=== PATIENT | female | born 1965 | race Caucasian/White ===

== ENCOUNTER 2018-04-12 08:13 | Outpatient (CLI) | payer BC | END 2018-04-12 08:14 | disposition home or self-care (01) | LOC: BICMAMMO 08:13 | PROVIDERS: ATTEND Family Medicine | DX: Z12.31 Encounter for screening mammogram for malignant neoplasm of breast (principal) | CPT/HCPCS: 77063; 77067 ==

== ENCOUNTER 2018-04-21 19:30 | Outpatient (CLI) | payer BC | END 2018-04-21 19:31 | disposition home or self-care (01) | LOC: SLEEPLAB 19:30 | PROVIDERS: ATTEND Family Medicine | DX: G47.33 Obstructive sleep apnea (adult) (pediatric) (principal); R06.83 Snoring; R53.83 Other fatigue; I10 Essential (primary) hypertension; E11.9 Type 2 diabetes mellitus without complications; Z68.24 Body mass index [BMI] 24.0-24.9, adult | CPT/HCPCS: 95811 ==

== ENCOUNTER 2018-09-27 20:26 | Inpatient (IN) | payer BC ==
[2018-09-27] MEDS ORDERED: Acetaminophen 500 MG TAB ONE (21:16)
[2018-09-27] MEDS ORDERED: Ondansetron PF 4 MG/2 ML Vial ONE (21:16)
--- NOTE | 2018-09-27 21:37 | RAD ---
PORTABLE CHEST: HISTORY: Fever. FINDINGS: Heart size and mediastinum are within normal limits. Lungs are clear of infiltrates. No significant bony findings. IMPRESSION: No active intrathoracic disease. POS: [facility]
[2018-09-27 21:40] LABS: #Lymphocytes 1.2 thou/uL (1.20-3.40); #Monocytes 1.6 thou/uL (0.11-0.59); #Neutrophils 9.9 thou/uL (1.40-6.50); %Basophils 0.3 % (0.0-1.0); %Eosinophils 0.4 % (0.0-10.0); %Lymphocytes 9.5 % (21.0-51.0); %Monocytes 12.7 % (0.0-10.0); %Neutrophils 77.2 % (42.0-75.0); Hemoglobin 13.2 g/dL (12.0-16.0); Mean Corpuscular Hemoglobin 30.9 pg (27.0-31.0); Mean Corpuscular Volume 93.6 fL (78.0-98.0); Mean Platelet Volume 9.3 fL (7.4-10.4); Platelet Count 147 thou/uL (130-400); RBC Distribution Width 13.8 % (11.5-14.5); Red Blood Cell (RBC) Count 4.28 mill/uL (4.20-5.40); White Blood Cell (WBC) Count 12.8 thou/uL (4.8-10.8)
[2018-09-27 21:56] LABS: ALT (SGPT) 45 U/L (8-55); AST (SGOT) 53 U/L (5-34); Albumin 3.9 g/dL (3.5-5.0); Alkaline Phosphatase 459 U/L (40-150); Anion Gap 14 mmol/L (10-20); BUN (Urea Nitrogen) 33 mg/dL (9.8-20.1); Bilirubin, Total 2.6 mg/dL (0.2-1.2); CK (CPK) 62 U/L (29-168); Calc. Creatinine Clearance 0 mL/min (70-130); Calcium 9.4 mg/dL (7.8-10.44); Carbon Dioxide 15 mmol/L (22-29); Chloride 108 mmol/L (98-107); Estimated GFR-MDRD 35; Globulin 3.2 g/dL (2.4-3.5); Glucose 174 mg/dL (70-105); Lipase 50 U/L (8-78); Potassium 4.1 mmol/L (3.5-5.1); Protein, Total 7.1 g/dL (6.0-8.3)
[2018-09-27 22:18] LABS: Sodium 133 mmol/L (136-145)
[2018-09-27] MEDS ORDERED: Cefepime 2 GM in Sodium Chloride 0.9% 100 ML IVPB ONE (22:30)
[2018-09-27 22:47] LABS: Bilirubin Small (Negative); Blood, Urine Large (Negative); Clarity TURBID (Clear); Glucose, Urine (Dipstick) Negative (Negative); Leukocyte Large (Negative); Nitrite Positive (Negative); Protein, Urine (Dipstick) 100 mg/dL (Neg-Trace); Specific Gravity, Urine 1.018 (1.002-1.036); Urobilinogen 0.2 mg/dL (0.2-1.0); pH, Urine 5.5 (5.0-9.0)
[2018-09-27 22:49] LABS: Bacteria/HPF 4+ HPF (None Seen); Hyaline Casts/LPF 0-3 HYALINE CAST LPF (0-3 Hyaline); Pathc Cast-AUWi Flag 0.43 (0-2.49); Squamous Epithelial 0-3 HPF (0-3)
[2018-09-28 01:36] VITALS: BMI 24.9
[2018-09-28] MEDS ORDERED: Ondansetron ODT 4 MG TAB SL PRN (01:38)
[2018-09-28] MEDS ORDERED: Acetaminophen 325 MG TAB PO PRN (01:38)
[2018-09-28] MEDS ORDERED: HYDROcodone/Acetaminophen 5/325 mg Tablet PO PRN ×3 (01:38→09:30)
[2018-09-28] MEDS ORDERED: Ondansetron PF 4 MG/2 ML Vial IVP PRN ×2 (01:38→09:30)
[2018-09-28] MEDS: Sodium Chloride 0.9% 1,000 ML IV SCH ×4 (01:49→16:17)
[2018-09-28] MEDS ORDERED: HumaLOG 300 UNITS/3 ML VIAL SC PRN ×2 (09:30)
[2018-09-28] MEDS ORDERED: Dextrose 5% in Water 1,000 ML IV PRN (09:30)
[2018-09-28] MEDS ORDERED: hydrALAZINE 20 MG/ML VIAL SLOW IVP PRN (09:30)
[2018-09-28] MEDS ORDERED: cloNIDine 0.1 MG TAB PO PRN (09:30)
[2018-09-28] MEDS ORDERED: Ondansetron ODT 4 MG TAB PO PRN (09:30)
[2018-09-28] MEDS ORDERED: Dextrose 50% Abboject 50 ML SYRINGE SLOW IVP PRN (09:30)
[2018-09-28 09:52] LABS: Hemoglobin 11.4 g/dL (12.0-16.0); Mean Corpuscular HGB CONC 32.4 g/dL (32.0-36.0); Mean Corpuscular Hemoglobin 30.3 pg (27.0-31.0); Mean Corpuscular Volume 93.7 fL (78.0-98.0); Platelet Count 120 thou/uL (130-400); RBC Distribution Width 13.5 % (11.5-14.5); Red Blood Cell (RBC) Count 3.75 mill/uL (4.20-5.40); White Blood Cell (WBC) Count 13.2 thou/uL (4.8-10.8)
[2018-09-28] MEDS ORDERED: Vancomycin HCl 1 GM in Sodium Chloride 0.9% 250 ML 300 ML IVPB SCH (10:00)
[2018-09-28] MEDS ORDERED: Tacrolimus 1 MG CAP PO SCH ×2 (10:00→10:15)
[2018-09-28] MEDS ORDERED: Temazepam 15 MG CAP PO PRN (10:02)
[2018-09-28 10:23] LABS: ALT (SGPT) 38 U/L (8-55); AST (SGOT) 43 U/L (5-34); Albumin 3.1 g/dL (3.5-5.0); Alkaline Phosphatase 331 U/L (40-150); Anion Gap 11 mmol/L (10-20); BUN (Urea Nitrogen) 26 mg/dL (9.8-20.1); Bilirubin, Total 2.5 mg/dL (0.2-1.2); Calc. Creatinine Clearance 56 mL/min (70-130); Calcium 7.9 mg/dL (7.8-10.44); Carbon Dioxide 15 mmol/L (22-29); Chloride 112 mmol/L (98-107); Estimated GFR-MDRD 40; Globulin 2.6 g/dL (2.4-3.5); Glucose 212 mg/dL (70-105); Potassium 4.3 mmol/L (3.5-5.1); Protein, Total 5.7 g/dL (6.0-8.3); Sodium 134 mmol/L (136-145)
[2018-09-28 10:26] LABS: Band 26 % (5-11); Lymphocytes 5 % (21-51); MDiff Complete? YES; Monocytes 10 % (0-10); Neutrophil 56 % (42-75); Platelet Morphology Comment Appears Decreased; Promyelocytes 1 % (0-0); RBC Morphology Normal; Reactive Lymphocytes 2 % (0-10)
[2018-09-28] MEDS: cefTRIAXone\\ROCEPHIN 2 GM in Sodium Chloride 0.9% 100 ML IVPB SCH (10:47)
[2018-09-28] MEDS ORDERED: Saccharomyces boulardii 250 MG CAP PO SCH (12:00)
[2018-09-28] MEDS: Vancomycin HCl 1.5 GM in Sodium Chloride 0.9% 250 ML 300 ML IVPB SCH (12:03)
[2018-09-28] MEDS: Acetaminophen 500 MG TAB PO PRN ×2 (12:09→22:51)
--- NOTE | 2018-09-28 12:33 | HP ---
PRIMARY CARE PROVIDER: Dr. Joe Tucker. PRIMARY GUIDE ESCORT: Joe Soto MD CHIEF COMPLAINT: Fever and body aches. HISTORY OF PRESENT ILLNESS: This is a 53-year-old female, who presented to [facility] Emergency Department complaining of fever of less than 24 hours' duration with a T-max of 103.3 degrees Fahrenheit. The patient had an episode of emesis associated with a fever with associated body aches and chills. The patient does admit to a significant history of renal and pancreas transplant in 2014 with history of sepsis in the summer of 2017 due to urinary tract infection. The patient does state she has frequent urinary tract infections and was recently placed on Levaquin by her transplant physician in the last 3 weeks prior to this evaluation. The patient also admits to history of C difficile colitis, receiving fecal transplant in July of 2018. The patient took acetaminophen at home for her temperature. However, due to the elevated number and general body aches, she presented to the emergency room for evaluation. The patient was also concerned due to chronic immunosuppressive therapy in the context of fever. The patient also states she was concerned of possible recurrent sepsis after dealing with the condition in 2018. In the emergency room, the patient underwent general evaluation with urinalysis suspicious for infectious process. The patient received vancomycin and cefepime in the emergency room. In addition, the patient received 2 L of normal saline, Tylenol, and Zofran. Attempts in the emergency room to transfer the patient to the transplant service at [facility] were unsuccessful due to [facility] being on diversion. The patient was transferred to the medical floor for further evaluation and antibiotic therapy. PAST MEDICAL HISTORY: 1. Chronic immunosuppressive therapy. 2. History of renal and pancreatic transplant in 2014. 3. Recurrent urinary tract infections. 4. History of diabetes mellitus. 5. Diabetes mellitus, type 1, insulin requiring. 6. 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 7. Primary biliary cirrhosis. 8. Renal agenesis of the left kidney. 9. Hypertension. PAST SURGICAL HISTORY: 1. Status post total abdominal hysterectomy. 2. Status post liver biopsy in 2011. 3. Status post renal transplant in 2014. 4. Status post pancreatic transplant in 2014. 5. Status post cataract removal. 6. Status post left upper extremity AV fistula placement. CURRENT MEDICATIONS: 1. Aspirin enteric-coated 81 mg p.o. daily. 2. Vitamin D3 of 5000 units p.o. daily. 3. Lasix 20 mg p.o. daily. 4. Humalog insulin pump. 5. Labetalol 200 mg p.o. b.i.d. 6. CellCept 500 mg p.o. daily. 7. Prednisone 5 mg p.o. daily. 8. Actonel 35 mg p.o. q.7 days. 9. Januvia 100 mg p.o. daily. 10. Sodium bicarbonate 650 mg p.o. daily. 11. Prograf 6 mg p.o. q.a.m. 12. Restoril 30 mg p.o. at bedtime p.r.n. 13. Vitamin A 10,000 units p.o. Thursday, Thursday, and Thursday. ALLERGIES: TO ADHESIVE TAPE AND CIPROFLOXACIN. FAMILY HISTORY: Dad with diabetes mellitus type 2 and history of lymphoma diagnosed at 64 years of age. Brother with diabetes mellitus type 2 as well as a brother with lymphoma. SOCIAL HISTORY: The patient is , accompanied by her in the hospital. No current alcohol, tobacco, or illicit drug use. 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 REVIEW OF SYSTEMS: CONSTITUTIONAL: Negative for weight loss or gain, ability to conduct usual activities. SKIN: Negative for rash, itching. EYES: Negative for double vision, pain. ENT/MOUTH: Negative for nose bleeding, neck stiffness, pain, tenderness. CARDIOVASCULAR: Negative for palpitations, dyspnea on exertion, orthopnea. RESPIRATORY: Negative for shortness of breath, wheezing, cough, hemoptysis, fever or night sweats. GASTROINTESTINAL: Negative for poor appetite, abdominal pain, heartburn, nausea, vomiting, constipation, or diarrhea. GENITOURINARY: Negative for urgency, frequency, dysuria, nocturia. MUSCULOSKELETAL: Negative for pain, swelling. NEUROLOGIC/PSYCHIATRIC: Negative for anxiety, depression. ALLERGY/IMMUNOLOGIC: Negative for skin rash, bleeding tendency. Otherwise negative except as stated per HPI. PHYSICAL EXAMINATION: VITAL SIGNS: Currently, blood pressure 121/68, pulse 100, respiratory rate 16, temperature 101.3 degrees Fahrenheit, T-max 103.3 degrees Fahrenheit, and O2 saturation 94% on room air. GENERAL APPEARANCE: This is a 53-year-old female, alert and oriented x3, pleasant, conversant, in no acute distress. HEENT: Pupils are equal, round, and reactive to light and accommodation. Extraocular muscles are intact. No scleral icterus. No conjunctival injection. Nares patent. OP is clear. Teeth in good repair. NECK: Supple. No cervical adenopathy. No thyromegaly. No carotid bruits. No JVD appreciated. Cervical spine with full active and passive range of motion. No meningeal signs appreciated. CHEST: Lungs are clear to auscultation bilaterally. CARDIOVASCULAR: S1 and S2 with tachycardia. No murmur, rub, or gallop appreciated. ABDOMEN: Rounded, soft, nontender, and nondistended. Bowel sounds are positive in all 4 quadrants. No hepatosplenomegaly. No abdominal bruits. No rebound or guarding appreciated. EXTREMITIES: Warm and dry with fair turgor. No clubbing, cyanosis, or asymmetric edema appreciated. Pulses are palpable distally at the dorsalis pedis, posterior tibial, and popliteal arteries bilaterally. Capillary refill less than 2 seconds. NEUROLOGIC: Cranial nerves II through XII are grossly intact. No focal or lateralizing signs appreciated. PERTINENT LABORATORY AND X-RAY FINDINGS: Sodium 134, potassium 4.3, chloride 112, CO2 of 15, BUN 26, creatinine 1.37, estimated GFR of 40, glucose 212, and calcium 7.9. Lactic acid level 1.1. Total bilirubin 2.5, AST 43, ALT of 38, and alkaline phosphatase 331. BNP 208. Albumin 3.1. Lipase 50. CBC showed a white blood cell count of 13.2, hemoglobin 11.4, hematocrit 35, platelet count 120 with 56% neutrophils, 26% bands. Urinalysis dated 09/27/2018, showed pH of 1.018, positive protein, large blood, positive nitrite, large leukocyte esterase with 11 to 20 rbc's per high-power field and 50 to [id number] wbc's per high-power field. 4+ bacteria noted. Blood cultures x2 dated 09/27/2018, showed no growth to date preliminarily. Influenza A and B antigen dated 09/27/2018, negative. EKG dated 09/27/2018, by my interpretation shows sinus mechanism with heart rates in the 100s. Normal R-wave progression noted in the precordial leads. Normal axis. No acute ST-T wave changes appreciated. Portable chest x-ray dated 09/27/2018 showed no acute cardiopulmonary process. ASSESSMENT AND PLAN: 1. Sepsis secondary to urinary tract infection. The patient will be admitted to the medical floor. The patient received initial sepsis protocol in the emergency room with IV fluid resuscitation. Initial lactic acid level 1.1. We will continue vancomycin 1 g IV q.12 hours with additional Rocephin 2 g IV q.24 hours. Await final urine culture results. Initial blood cultures x2 negative as stated previously. Continue intravenous normal saline at 100 mL/h. 2. Chronic immunosuppression due to medical therapy. We will resume CellCept 500 mg daily and Prograf 6 mg p.o. daily. 3. Renal/pancreatic transplant, stable currently. Current plans are to initiate transfer to [facility] due to two organ transplant and chronic immunosuppressive therapy. 4. Chronic kidney disease, stage 3. Avoid nephrotoxic agents and limit contrast exposure. Continue intravenous fluids as outlined previously. Serial creatinine monitoring. 5. Primary biliary cirrhosis, chronic and stable. Serial monitoring. 6. Diabetes mellitus, type 1. Resume home diabetic regimen. Insulin sliding scale for reflexive coverage. ADA diet. 7. Prophylaxis. SCDs while in bed. Pepcid 20 mg p.o. b.i.d. 8. Code status is full. Surrogate medical decision maker is the patient's spouse. Job ID: [id number]
[2018-09-28] MEDS: Ursodiol 300 MG CAP PO SCH (20:21)
[2018-09-28] MEDS ORDERED: [UNRECOGNIZED DRUG - REMARK] FS SCH (20:45)
[2018-09-28] MEDS: Tacrolimus 1 MG CAP PO SCH (20:59)
[2018-09-28] MEDS: Famotidine 20 MG TAB PO SCH (21:00)
[2018-09-28] MEDS: Mycophenolate 250 MG CAP PO SCH (21:00)
[2018-09-28] MEDS: Labetalol 100 MG TAB PO SCH (21:00)
[2018-09-29 07:33] LABS: Anion Gap 14 mmol/L (10-20); BUN (Urea Nitrogen) 25 mg/dL (9.8-20.1); Calc. Creatinine Clearance 64 mL/min (70-130); Calcium 7.8 mg/dL (7.8-10.44); Carbon Dioxide 11 mmol/L (22-29); Chloride 117 mmol/L (98-107); Estimated GFR-MDRD 47; Glucose 106 mg/dL (70-105); Potassium 4.2 mmol/L (3.5-5.1); Sodium 138 mmol/L (136-145)
[2018-09-29 08:10] LABS: Hemoglobin 10.7 g/dL (12.0-16.0); Mean Corpuscular HGB CONC 32.1 g/dL (32.0-36.0); Mean Corpuscular Hemoglobin 30.4 pg (27.0-31.0); Mean Corpuscular Volume 94.7 fL (78.0-98.0); Mean Platelet Volume 9.7 fL (7.4-10.4); Platelet Count 111 thou/uL (130-400); RBC Distribution Width 13.8 % (11.5-14.5); Red Blood Cell (RBC) Count 3.54 mill/uL (4.20-5.40); White Blood Cell (WBC) Count 8.8 thou/uL (4.8-10.8)
[2018-09-29] MEDS: Saccharomyces boulardii 250 MG CAP PO SCH (08:11)
[2018-09-29] MEDS: Famotidine 20 MG TAB PO SCH ×2 (08:11→20:51)
[2018-09-29] MEDS: Furosemide 20 MG TAB PO SCH (08:12)
[2018-09-29] MEDS: Sodium Bicarbonate Tab 325 MG TAB PO SCH (08:13)
[2018-09-29] MEDS: Alogliptin 25 MG TAB PO SCH (08:13)
[2018-09-29] MEDS: Mycophenolate 250 MG CAP PO SCH ×2 (08:13→20:50)
[2018-09-29] MEDS: Labetalol 100 MG TAB PO SCH ×2 (08:14→20:50)
[2018-09-29] MEDS: Ursodiol 300 MG CAP PO SCH ×2 (08:14→20:51)
[2018-09-29] MEDS: Aspirin Chewable 81 MG TAB PO SCH (08:14)
[2018-09-29] MEDS: predniSONE 5 MG TAB PO SCH (08:15)
[2018-09-29] MEDS: Tacrolimus 1 MG CAP PO SCH ×2 (08:15→20:51)
[2018-09-29] MEDS: Sodium Chloride 0.9% 1,000 ML IV SCH (08:18)
[2018-09-29] MEDS ORDERED: Tacrolimus 1 MG CAP PO SCH ×2 (09:00)
[2018-09-29] MEDS ORDERED: Mycophenolate 250 MG CAP PO SCH (09:00)
[2018-09-29] MEDS ORDERED: Saccharomyces boulardii 250 MG CAP PO SCH (09:00)
[2018-09-29 09:57] LABS: MDiff Complete? YES; Platelet Morphology Comment Appears Decreased; Polychromasia SLIGHT = 2-3 cells (100X) (0-2/hpf)
[2018-09-29] MEDS: cefTRIAXone\\ROCEPHIN 2 GM in Sodium Chloride 0.9% 100 ML IVPB SCH (10:00)
[2018-09-29 10:10] LABS: Band 17 % (5-11); Eosinophils 3 % (0-10); Lymphocytes 14 % (21-51); Monocytes 8 % (0-10); Neutrophil 58 % (42-75)
[2018-09-29] MEDS: Vancomycin HCl 1.5 GM in Sodium Chloride 0.9% 250 ML 300 ML IVPB SCH (12:26)
--- NOTE | 2018-09-29 14:06 | PDOC.PN ---
- Subjective Encounter Start Date: 09/29/18 Encounter Start Time: 14:00 Subjective: f/u for sepsis secondary to UTI with Klebsiella spp. Feels ok overall -: and last fever at midnight. - Objective Resuscitation Status - Order Detail: 09/28/18 09:23 Resuscitation Status Routine Resuscitation Status: FULL: Full Resuscitation MAR Reviewed: Yes Vital Signs & Weight: Vital Signs (12 hours) Temp Pulse Resp BP BP BP Pulse Ox 09/29/18 11:00 98.5 F 89 18 131/69 94 L 09/29/18 08:14 91 127/69 09/29/18 08:10 97 09/29/18 07:53 98.4 F 91 18 127/69 97 09/29/18 04:00 97.8 F 88 16 130/70 96 Weight Weight 163 lb 12.855 oz I&O: 09/28/18 09/29/18 09/30/18 06:59 06:59 06:59 Intake Total 1050 3130 Balance 1050 3130 Result Diagrams: 09/29/18 06:42 09/29/18 06:42 Additional Labs: Accuchecks 09/29/18 09/29/18 09/28/18 11:08 04:53 20:01 POC Glucose 112 H 88 149 H 09/28/18 16:36 POC Glucose 145 H Microbiology 09/27/18 22:32 Urine clean catch Urine Culture - Preliminary Klebsiella pneumoniae ssp pneu 09/27/18 21:18 Venous blood - Right Hand Blood Culture - Preliminary Specimen has been received and culture in progress. No Growth to date. 09/27/18 20:49 Venous blood - Right Arm Blood Culture - Preliminary Specimen has been received and culture in progress. No Growth to date. Laboratory Tests 09/28/18 09/29/18 09:43 06:42 WBC 13.2 H Band Neuts % (Manual) 26 H 17 H Phys Exam - Physical Examination Constitutional: NAD HEENT: PERRLA, sclera anicteric, oral pharynx no lesions Neck: no nodes, no JVD, supple, full ROM Respiratory: no wheezing, no rales, no rhonchi, clear to auscultation bilateral S1,S2 Cardiovascular: RRR, no significant murmur, no rub, gallop Gastrointestinal: soft, non-tender, no distention, positive bowel sounds Musculoskeletal: no edema, pulses present Neurological: normal sensation, moves all 4 limbs Psychiatric: normal affect, A&O x 3 Skin: normal turgor, cap refill <2 seconds Dx/Plan (1) Sepsis due to gram-negative UTI Code(s): A41.50 - GRAM-NEGATIVE SEPSIS, UNSPECIFIED; N39.0 - URINARY TRACT INFECTION, SITE NOT SPECIFIED Status: Acute Comment: Stable currently, continue Rocephin, d/c Vancomycin, saline lock IVF (2) UTI due to Klebsiella species Code(s): N39.0 - URINARY TRACT INFECTION, SITE NOT SPECIFIED; B96.1 - KLEBSIELLA PNEUMONIAE THE CAUSE OF DISEASES CLASSD [id number] Status: Acute Comment: Continue Rocephin and likely convert Levaquin in am (3) FABIAN (acute kidney injury) Code(s): N17.9 - ACUTE KIDNEY FAILURE, UNSPECIFIED Status: Acute Comment: Improved, saline lock IVF, avoid nephrotoxic meds and limit contrast (4) CKD (chronic kidney disease), stage III Code(s): N18.3 - CHRONIC KIDNEY DISEASE, STAGE 3 (MODERATE) Status: Chronic Comment: See above (5) Immunosuppression due to drug therapy Code(s): Z79.899 - OTHER HAND CLIPPER (CURRENT) DRUG THERAPY Status: Chronic Comment: Chronic Cellcept, Prograf - Plan plan discussed w/ family, 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
[2018-09-30] MEDS ORDERED: Furosemide 20 MG TAB PO SCH (01:00)
[2018-09-30] MEDS: Acetaminophen 500 MG TAB PO PRN (04:55)
[2018-09-30] MEDS ORDERED: Furosemide 40 MG/4 ML VIAL SLOW IVP SCH (05:00)
[2018-09-30] MEDS: Ursodiol 300 MG CAP PO SCH (08:34)
[2018-09-30] MEDS: Tacrolimus 1 MG CAP PO SCH (08:34)
[2018-09-30] MEDS: Labetalol 100 MG TAB PO SCH (08:34)
[2018-09-30] MEDS: Sodium Bicarbonate Tab 325 MG TAB PO SCH (08:36)
[2018-09-30] MEDS: Mycophenolate 250 MG CAP PO SCH (08:36)
[2018-09-30] MEDS: Aspirin Chewable 81 MG TAB PO SCH (08:36)
[2018-09-30] MEDS: Famotidine 20 MG TAB PO SCH (08:36)
[2018-09-30] MEDS: Saccharomyces boulardii 250 MG CAP PO SCH (08:36)
[2018-09-30] MEDS: Alogliptin 25 MG TAB PO SCH (08:36)
[2018-09-30] MEDS: Furosemide 20 MG TAB PO SCH (08:37)
[2018-09-30] MEDS: predniSONE 5 MG TAB PO SCH (08:37)
[2018-09-30] MEDS: cefTRIAXone\\ROCEPHIN 2 GM in Sodium Chloride 0.9% 100 ML IVPB SCH (10:24)
--- NOTE | 2018-09-30 13:33 | DIS ---
DATE OF ADMISSION: 09/28/2018 DATE OF DISCHARGE: 09/30/2018 DISCHARGE DIAGNOSES: 1. Sepsis due to Klebsiella pneumoniae species from urinary tract infection. 2. Urinary tract infection due to Klebsiella species. 3. Acute kidney injury, resolved. 4. Chronic kidney disease, stage 3, stable. 5. Chronic immunosuppression due to drug therapy. 6. Diabetes mellitus, type 1, stable. CONSULTATIONS: None. PERTINENT LABORATORY AND X-RAY FINDINGS: Creatinine ranged between 1.19 to 1.54. Estimated GFR ranged between 35 to 47. Lactic acid level 1.1. Total bilirubin ranged between 2.5 to 2.6. AST ranged between 43 to 53. BNP 208. CBC showed a white blood cell count ranged between 8.8 to 13.2, hemoglobin ranged between 10.7 to 13.2. Urine culture dated 09/27/2018, showed 75,000 to 100,000 colonies of Klebsiella species, pansensitive except for Macrobid. Blood cultures x2 dated 09/27/2018, showed no growth at 48 hours. Influenza A and B antigen dated 09/27/2018, negative. Portable chest x-ray dated 09/27/2018, showed no acute cardiopulmonary process. HOSPITAL COURSE: The patient was admitted to the medical floor after initially presenting with fever and myalgias. The patient was initially noted with a T-max of a 103.3 degrees Fahrenheit with concern for potential urinary tract infection. The patient was treated with general sepsis protocol including IV fluids. The patient received IV antibiotic therapy with vancomycin and Rocephin. Blood cultures x2 were negative as stated previously with urine culture showing Klebsiella species. The patient clinically stabilized with IV antibiotic therapy and IV fluid resuscitation. The patient's overall temperature trend decreased by the time of discharge. The patient was tolerating regular oral intake and ambulating without assistance or difficulty and tolerating with stable vital signs. I have examined the patient at the time of discharge and discussed followup instructions. The patient verbalized understanding and in agreement and ready for discharge on 09/30/2018. DISCHARGE MEDICATIONS: 1. Levaquin 500 mg on day 1 followed by 250 mg daily x7 days. 2. Enteric-coated aspirin 81 mg p.o. daily. 3. Zyrtec 10 mg p.o. daily. 4. Vitamin D3 of 5000 units p.o. daily. 5. Lasix 20 mg p.o. daily. 6. Levemir subcutaneously daily. 7. Labetalol 200 mg p.o. b.i.d. 8. CellCept 500 mg p.o. b.i.d. 9. Prednisone 5 mg p.o. daily. 10. Actonel 35 mg p.o. q.7 days. 11. Januvia 100 mg p.o. daily. 12. Sodium bicarbonate 650 mg p.o. daily. 13. Prograf 6 mg p.o. b.i.d. 14. Restoril 30 mg p.o. at bedtime p.r.n. 15. Ursodiol 500 mg p.o. b.i.d. 16. Vitamin A 10,000 units p.o. Thursday, Thursday, and Thursday. FOLLOWUP: The patient to follow up with Dr. Joe Tucker within 7 days of discharge. CONDITION ON DISCHARGE: Stable. ACTIVITY: Ad-sanjiv. DIET: ADA. CODE STATUS: Full. DISPOSITION: Home on 09/30/2018. TIME SPENT: Total time preparing and coordinating discharge, 32 minutes. Job ID: [id number]
[2018-09-30 14:18] VITALS: BP 146/76; TEMP 97.9
--- NOTE | 2018-10-01 15:25 | PDOC.EVN ---
Event Note - Event Note Event Note: 10/01/18 Spoke with pt regarding 1/2 + blood cx with Klebsiella spp as seen from [facility]. Susceptible to Levaquin currently with plans for 9 day course of therapy. Recommend repeat blood cx after completion of abx regimen to confirm resolution. Pt verbalized understanding and agreement.
== END 2018-09-30 15:56 | disposition home or self-care (01) | DRG 872 ==
LOC: ERS 20:26 → T4-A 09-28 01:07
PROVIDERS: ADMIT Family Medicine; ATTEND Family Medicine
DX: A41.50 Gram-negative sepsis, unspecified (principal); Z94.83 Pancreas transplant status; Z94.0 Kidney transplant status; N39.0 Urinary tract infection, site not specified; N17.9 Acute kidney failure, unspecified; R65.20 Severe sepsis without septic shock; B96.1 Klebsiella pneumoniae [K. pneumoniae] as the cause of diseases classified elsewhere; I12.9 Hypertensive chronic kidney disease with stage 1 through stage 4 chronic kidney disease, or unspecified chronic kidney disease; N18.3 Chronic kidney disease, stage 3 (moderate); K74.3 Primary biliary cirrhosis; E10.22 Type 1 diabetes mellitus with diabetic chronic kidney disease; Z90.710 Acquired absence of both cervix and uterus; Z98.49 Cataract extraction status, unspecified eye; Z98.890 Other specified postprocedural states; Z91.048 Other nonmedicinal substance allergy status; Z79.82 Long term (current) use of aspirin; Z79.899 Other long term (current) drug therapy; Z88.1 Allergy status to other antibiotic agents
CPT/HCPCS: 36415; 36416; 71045; 80048; 80053; 81003; 81015; 82550; 83605; 83690; 83880; 84484; 85007; 85025; 85027; 87040; 87077; 87086; 87149; 87186; 87804; 93005; 96361; 96365; 96366; 96368; 96375; J0692; J0696; J1940; J2405; J3370; J7050; J7507; J7512; J7517; Q0162

== ENCOUNTER 2019-10-26 18:15 | Emergency (ER) | payer BC ==
[2019-10-26 20:22] LABS: Hemoglobin 11.8 g/dL (12.0-16.0); Mean Corpuscular HGB CONC 33.6 g/dL (32.0-36.0); Mean Corpuscular Hemoglobin 30.4 pg (27.0-31.0); Mean Corpuscular Volume 90.4 fL (78.0-98.0); Mean Platelet Volume 9.5 fL (7.4-10.4); Platelet Count 132 thou/uL (130-400); Red Blood Cell (RBC) Count 3.88 mill/uL (4.20-5.40); White Blood Cell (WBC) Count 9.3 thou/uL (4.8-10.8)
[2019-10-26 20:38] LABS: ALT (SGPT) 50 U/L (8-55); AST (SGOT) 90 U/L (5-34); Albumin 3.8 g/dL (3.5-5.0); Alkaline Phosphatase 329 U/L (40-110); Anion Gap 15 mmol/L (10-20); BUN (Urea Nitrogen) 37 mg/dL (9.8-20.1); Band 26 % (5-11); Bilirubin, Total 1.3 mg/dL (0.2-1.2); CK (CPK) 159 U/L (29-168); Calc. Creatinine Clearance 0 mL/min (70-130); Calcium 8.8 mg/dL (7.8-10.44); Carbon Dioxide 19 mmol/L (22-29); Chloride 110 mmol/L (98-107); Estimated GFR-MDRD 24; Globulin 2.6 g/dL (2.4-3.5); Glucose 66 mg/dL (70-105); Lymphocytes 8 % (21-51); MDiff Complete? YES; Metamyelocyte 2 % (0-0); Monocytes 1 % (0-10); Neutrophil 63 % (42-75); Platelet Morphology Comment Appears Adequate; Polychromasia SLIGHT = 2-3 cells (100X) (0-2/hpf); Potassium 3.8 mmol/L (3.5-5.1); Protein, Total 6.4 g/dL (6.0-8.3); Sodium 140 mmol/L (136-145)
--- NOTE | 2019-10-26 20:38 | RAD ---
PORTABLE CHEST: 10/26/19 HISTORY: Cough, fever and chills. COMPARISON: 09/27/18 exam. Heart size and mediastinum are within normal limits. The lungs are clear of infiltrates. IMPRESSION: No active intrathoracic disease. POS: [facility]
[2019-10-26 20:57] LABS: Bacteria/HPF 4+ HPF (None Seen); Bilirubin 1+ (Negative); Blood, Urine 2+ (Negative); Clarity Extra Turbid (Clear); Glucose, Urine (Dipstick) Normal (Negative); Leukocyte 500 Leu/uL (Negative); Nitrite Negative (Negative); Protein, Urine (Dipstick) 100 mg/dL (Neg-Trace); RBC/HPF Greater than 50 HPF (0-3); Renal Epithelial 0-3 HPF (None Seen); Squamous Epithelial None Seen HPF (0-3); Urobilinogen Normal mg/dL (Less than 2); WBC/HPF Greater than 50 HPF (0-3)
[2019-10-26 21:37] LABS: ALT (SGPT) 54 U/L (8-55); AST (SGOT) 102 U/L (5-34); Alkaline Phosphatase 341 U/L (40-110); Anion Gap 18 mmol/L (10-20); BUN (Urea Nitrogen) 37 mg/dL (9.8-20.1); Bilirubin, Total 1.3 mg/dL (0.2-1.2); CK (CPK) 178 U/L (29-168); Calc. Creatinine Clearance 0 mL/min (70-130); Calcium 9.1 mg/dL (7.8-10.44); Carbon Dioxide 15 mmol/L (22-29); Chloride 111 mmol/L (98-107); Estimated GFR-MDRD 24; Globulin 2.9 g/dL (2.4-3.5); Potassium 3.9 mmol/L (3.5-5.1); Protein, Total 6.9 g/dL (6.0-8.3); Sodium 140 mmol/L (136-145)
[2019-10-26 21:44] LABS: Glucose 54 mg/dL (70-105)
[2019-10-26] MEDS ORDERED: cefTRIAXone\\ROCEPHIN 1 GM VIAL ONE (21:50)
[2019-10-26] MEDS ORDERED: Acetaminophen 500 MG TAB ONE (22:02)
== END 2019-10-26 22:32 | disposition home or self-care (01) ==
LOC: ERS 18:15
DX: N39.0 Urinary tract infection, site not specified (principal); E11.9 Type 2 diabetes mellitus without complications; I10 Essential (primary) hypertension; Z79.4 Long term (current) use of insulin
CPT/HCPCS: 36415; 36416; 71045; 80053; 81001; 82550; 85025; 96361; 96365; J0696

== ENCOUNTER 2023-04-23 10:43 | Outpatient (CLI) | payer BC | END 2023-04-23 10:44 | disposition home or self-care (01) | LOC: BICMAMMO 10:43 | PROVIDERS: ATTEND Family Medicine | DX: Z12.31 Encounter for screening mammogram for malignant neoplasm of breast (principal); Z98.890 Other specified postprocedural states | CPT/HCPCS: 77063; 77067 ==

== ENCOUNTER 2025-08-08 08:26 | Outpatient (CLI) | payer BC | END 2025-08-08 08:27 | disposition home or self-care (01) | LOC: BICMAMMO 08:26 | PROVIDERS: ATTEND Family Medicine | DX: Z12.31 Encounter for screening mammogram for malignant neoplasm of breast (principal); Z91.89 Other specified personal risk factors, not elsewhere classified; Z85.828 Personal history of other malignant neoplasm of skin; R92.333 Mammographic heterogeneous density, bilateral breasts | CPT/HCPCS: 77063; 77067 ==

== ENCOUNTER 2025-08-14 09:43 | Emergency (ER) | payer BC ==
[2025-08-14] MEDS ORDERED: HYDROcodone/Acetaminophen 5/325 mg Tablet ONE (10:23)
== END 2025-08-14 11:24 | disposition home or self-care (01) ==
LOC: ERS 09:43
DX: S80.12XA Contusion of left lower leg, initial encounter (principal); S40.012A Contusion of left shoulder, initial encounter; I12.9 Hypertensive chronic kidney disease with stage 1 through stage 4 chronic kidney disease, or unspecified chronic kidney disease; E11.22 Type 2 diabetes mellitus with diabetic chronic kidney disease; N18.9 Chronic kidney disease, unspecified; Z94.0 Kidney transplant status; Z79.4 Long term (current) use of insulin; Z79.899 Other long term (current) drug therapy; W01.198A Fall on same level from slipping, tripping and stumbling with subsequent striking against other object, initial encounter
CPT/HCPCS: 71045; 99283